=== PATIENT | female | born 1995 ===

== ENCOUNTER 2023-04-08 09:47 | Outpatient (REF) | payer OTHER, SELFPAY ==
[2023-04-09 12:25] LABS: Chlamydia Result Negative (Negative); GC Result Negative (Negative)
== END 2023-04-08 09:48 | disposition home or self-care (01) ==
LOC: LBN 09:47
PROVIDERS: PCP Nurse Practitioner Family; Visit Provider Obstetrics & Gynecology
DX: Z11.3 Encounter for screening for infections with a predominantly sexual mode of transmission (principal)
CPT/HCPCS: 87491; 87591

== ENCOUNTER 2023-09-23 10:07 | Outpatient (CLI) | payer BC, SELFPAY ==
--- OUTSIDE RECORDS SUMMARY | 2023-09-23 10:12 | XMS_ITS | Continuity of Care Document ---
Author Name Unknown Organization [facility] Address [address] [place] [address] Encounter [facility] Date(s): 03/09/23 - 03/09/23 [facility] [address] [place] [address] Discharge Disposition: Home or Self Care Attending Physician: Edita Murray PA-C Admitting Physician: Edita Murray PA-C Allergies, Adverse Reactions, Alerts Substance Reaction Severity Status ibuprofen Unknown Active penicillins Unknown Active sulfa drugs Unknown Active Results Laboratory List Name Date Automated Diff 03/09/23 CBC w/ Diff 03/09/23 Comprehensive Metabolic Panel 03/09/23 TSH w/ Rflx to Free T4 03/09/23 Most recent to oldest [Reference Range]: 1 WBC [5.0-10.0 x10^3/mcL] 5.2 x10^3/mcL (03/09/23 3:31 PM) RBC [4.1-5.3 x10^6/mcL] 4.2 x10^6/mcL (03/09/23 3:31 PM) Neutro Auto [40.0-75.0 %] 58.5 % (03/09/23 3:31 PM) Lymph Auto [20.0-50.0 %] 33.4 % (03/09/23 3:31 PM) [place] Auto [2.0-15.0 %] 6.5 % (03/09/23 3:31 PM) Basophil Auto [0.0-1.0 %] 0.2 % (03/09/23 3:31 PM) BUN [7-18 mg/dL] 6 mg/dL *LOW* (03/09/23 3:31 PM) Glucose Level [74-106 mg/dL] 106 mg/dL (03/09/23 3:31 PM) Potassium Level [3.5-5.1 mmol/L] 4.0 mmo l/L (03/09/23 3:31 PM) MCV [80.0-96.0 fL] 82.7 fL (03/09/23 3:31 PM) AST [15-37 unit/L] 18 unit/L (03/09/23 3:31 PM) ALT [14-59 unit/L] 19 unit/L (03/09/23 3:31 PM) MCHC [31.0-35.0 g/dL] 31.1 g/dL (03/09/23 3:31 PM) Sodium Level [136-145 mmol/L] 140 mmol/L (03/09/23 3:31 PM) Hct [37.0-47.0 %] 34.4 % *LOW* (03/09/23 3:31 PM) Calcium Level [8.5-10.1 mg/dL] 8.8 mg/dL (03/09/23 3:31 PM) Albumin Level [3.4-5.0 g/dL] 3.8 g/dL (03/09/23 3:31 PM) Protein Total [6.4-8.2 g/dL] 7.3 g/dL (03/09/23 3:31 PM) MCH [26.0-32.0 pg] 25.7 pg *LOW* (03/09/23 3:31 PM) Neutro Absolute 3.0 x10^3/mcL *NA* (03/09/23 3:31 PM) Bilirubin Total [0.2-1.0 mg/dL] 0.3 mg/d L (03/09/23 3:31 PM) Hgb [12.0-16.0 g/dL] 10.7 g/dL *LOW* (03/09/23 3:31 PM) Alk Phos [46-146 unit/L] 83 unit/L (03/09/23 3:31 PM) Platelets [130-450 x10^3/mcL] 356 x10^3/ mcL (03/09/23 3:31 PM) CO2 [21-32 mmol/L] 28 mmol/L (03/09/23 3:31 PM) TSH [0.358-3.740 mcIntlUnit/mL] 0.992 mc IntlUnit/mL (03/09/23 3:31 PM) eGFR Non-AA [>=60] 128 (03/09/23 3:31 PM) eGFR AA [>=60] 128 (03/09/23 3:31 PM) Chloride Level [98-107 mmol/L] 104 mmol/ L (03/09/23 3:31 PM) RDW-CV [11.5-14.5 %] 13.4 % (03/09/23 3:31 PM) Imm Gran Auto [0.0-0.9 %] 0.2 % (03/09/23 3:31 PM) Creatinine Level [0.55-1.02 mg/dL] 0.58 mg/dL (03/09/23 3:31 PM) Eos, Auto [1.0-6.0 %] 1.2 % (03/09/23 3:31 PM) Social History Social History Type Response Sex Female
[2023-09-23 10:23] LABS: Abs Immature Grans 0.02 10^3/uL (0.0-0.06); Absolute Basophil Count 0.02 10^3/uL (0.0-0.2); Absolute Eosinophil Count 0.07 10^3/uL (0.0-0.7); Absolute Lymphocyte Count 2.08 10^3/uL (1.2-3.4); Absolute Monocyte Count 0.42 10^3/uL (0.1-0.8); Absolute Neutrophil Count 4.09 10^3/uL (1.2-6.7); Basophils % 0.3; HCT 37.3 % (36.0-46.0); HGB 12.4 g/dL (11.2-15.7); Immature Grans % 0.3; MCH 28.4 pg (27.0-33.0); MCHC 33.2 % (32.0-36.0); MCV 86 fL (80-95); MPV 9.9 fL (8.0-11.0); Monocytes % 6.3; Neutrophils % 61.1; Platelet Count 275 10^3/uL (130-400); RBC 4.36 10^6/uL (3.93-5.22); RDW 12.9 % (11.7-14.6); RDW-SD 40.1 fL
[2023-09-23 11:10] LABS: TSH (W/Ref FT4) 2.26 uIU/mL (0.36-3.74)
[2023-09-23 11:55] LABS: Iron 36 ug/dL (50-170); Total Iron Binding Capacity 345 ug/dL (250-450); Transferrin Sat 10 % (15-50)
[2023-09-26 09:51] LABS: Transferrin 236 mg/dL (201-352)
== END 2023-09-23 10:08 | disposition home or self-care (01) ==
LOC: LBO 10:07
PROVIDERS: PCP Nurse Practitioner Family; Visit Provider Family Medicine
DX: D64.9 Anemia, unspecified (principal); R53.83 Other fatigue
CPT/HCPCS: 36415; 83540; 83550; 84443; 84466; 85025

== ENCOUNTER 2023-09-30 18:18 | Outpatient (REF) | payer BC, SELFPAY ==
[2023-09-30 18:18] LABS: Bilirubin Negative (Negative); Blood Moderate (Negative); Clarity Clear (Clear); Glucose Negative (Negative); Ketones Negative (Negative); Leukocyte Esterase Negative (Negative); Nitrite Negative (Negative); pH 7.5 (5-8)
[2023-09-30 18:27] LABS: Bacteria Rare HPF (Negative); C & S Indicated? No; Casts Negative LPF (Negative); Crystals Negative HPF (Negative); Epithelial Cells Few HPF (Negative); Mucus Negative (Negative); RBC 0-2 HPF (0-2); WBC 0-2 HPF (0-5)
== END 2023-09-30 18:19 | disposition home or self-care (01) ==
LOC: LBN 18:18
PROVIDERS: PCP Nurse Practitioner Family; Visit Provider Family Medicine
DX: R82.998 Other abnormal findings in urine (principal); D64.9 Anemia, unspecified; R53.83 Other fatigue
CPT/HCPCS: 81003; 81015

== ENCOUNTER 2023-10-05 15:30 | Outpatient (REF) | payer BC, SELFPAY ==
[2023-10-05 13:22] LABS: Bilirubin Negative (Negative); Blood Negative (Negative); Clarity Clear (Clear); Glucose Negative (Negative); Ketones Negative (Negative); Leukocyte Esterase Negative (Negative); Nitrite Negative (Negative); Urobilinogen 0.2 mg/dL (Up to 0.2)
[2023-10-07 11:59] LABS: Myoglobin, U 38 mcg/L (<=65)
== END 2023-10-05 15:31 | disposition home or self-care (01) ==
LOC: LBN 15:30
PROVIDERS: PCP Nurse Practitioner Family; Visit Provider Family Medicine
DX: R31.9 Hematuria, unspecified (principal); Z87.440 Personal history of urinary (tract) infections
CPT/HCPCS: 81003; 83874

== ENCOUNTER 2023-11-03 01:04 | Outpatient (RCR) | payer BC, SELFPAY ==
[2023-10-19] MEDS: IRON SUCROSE COMPLEX 300 MG in Normal Saline 250 ML 176.667 MG IVPB (08:32)
[2023-10-19] MEDS: Normal Saline Flush 10 ML SYR IVP (08:41)
[2023-10-28] MEDS: Normal Saline Flush 10 ML SYR IVP (08:51)
[2023-10-28] MEDS: IRON SUCROSE COMPLEX 300 MG in Normal Saline 250 ML 176.667 MG IVPB (08:51)
[2023-11-03] MEDS: IRON SUCROSE COMPLEX 300 MG in Normal Saline 250 ML 176.667 MG IVPB (08:52)
[2023-11-03] MEDS: Normal Saline Flush 10 ML SYR IVP (08:52)
== END 2023-11-10 23:59 | disposition home or self-care (01) ==
LOC: INF 01:04
PROVIDERS: PCP Nurse Practitioner Family; Visit Provider Family Medicine
DX: D64.9 Anemia, unspecified (principal)
CPT/HCPCS: 96365; 96366; J1756